=== PATIENT | female | born 1985 | race Caucasian/White ===

== ENCOUNTER 2018-06-20 17:17 | Emergency (ER) | payer OTHER ==
[~2018-06-20] VITALS: Ht 172.7 cm; Wt 74.8 kg
[2018-06-20 17:24] VITALS: BP 158/78
[2018-06-20] MEDS ORDERED: VENLAFAXINE XR 150 MG CAP.SR.24H ONE (18:10)
[2018-06-20] MEDS ORDERED: VENLAFAXINE XR 150 MG CAP.SR.24H PO ONE (18:30)
== END 2018-06-20 18:37 | disposition home or self-care (01) ==
LOC: ER 17:19
DX: F19.939 Other psychoactive substance use, unspecified with withdrawal, unspecified (principal); F32.9 Major depressive disorder, single episode, unspecified